=== PATIENT | male | born 1960 | race Caucasian/White ===

== ENCOUNTER 2020-04-26 12:47 | Emergency (ER) | payer MEDICAID ==
[~2020-04-26] VITALS: Ht 157.5 cm; Wt 81.8 kg
[~2020-04-26 12:47] MED LIST: ASPI-556 PO; BENA5TAB26 PO; HYDR-4173 PO; INSLAN SQ
[2020-04-26] MEDS ORDERED: INSU100I26 SQ (12:53)
[2020-04-26 13:50] VITALS: BP 130/68
== END 2020-04-26 14:05 | disposition home or self-care (01) ==
LOC: EMS 12:49
DX: E11.9 Type 2 diabetes mellitus without complications (principal); Z76.0 Encounter for issue of repeat prescription